=== PATIENT | female | born 1950 | race African-American/Black ===

== ENCOUNTER 2017-12-31 05:22 | Day surgery (SDC) | payer MEDICARE, MEDICAID ==
[~2017-12-31] VITALS: Ht 171.4 cm; Wt 85.7 kg
[~2017-12-31 05:22] MED LIST: HYDR12.54 PO; IBUP-2029 PO; LOSA25TA12 PO
[2017-12-31] MEDS ORDERED: LACTATED RINGERS 1,000 ML IV SCH (06:30)
[2017-12-31] MEDS ORDERED: LIDOCAINE HCL 1% 10 MG/ML 10ML VIAL ONE (06:59)
[2017-12-31] MEDS ORDERED: BUPIVACAINE HCL/PF 0.5% (5MG/ML) 10ML ONE (06:59)
[2017-12-31] MEDS ORDERED: BACITRACIN 50,000 UNITS/VIAL ONE (07:00)
[2017-12-31] MEDS ORDERED: NORMAL SALINE 0.9% 10 ML SYR ONE (07:00)
[2017-12-31] MEDS ORDERED: BETAMETHASONE ACET/BETAMET 30 MG/5 ML VIAL IM ONE (07:00)
[2017-12-31] MEDS ORDERED: MIDAZOLAM HCL 2 MG/2 ML VIAL ONE ×2 (07:42→08:01)
[2017-12-31] MEDS ORDERED: PROPOFOL 200MG/20ML VIAL IV ONE (07:43)
[2017-12-31] MEDS ORDERED: CEFAZOLIN SODIUM 1000MG/VIAL ONE (07:55)
[2017-12-31] MEDS ORDERED: HYDROMORPHONE HCL/PF 2MG/ML CPJ IV PRN (08:45)
[2017-12-31] MEDS ORDERED: ONDANSETRON HCL 4MG/2ML INJ IV PRN (08:45)
== END 2017-12-31 10:10 | disposition home or self-care (01) ==
LOC: OR 05:22
PROVIDERS: ATTEND Podiatrist Foot & Ankle Surgery
DX: M20.42 Other hammer toe(s) (acquired), left foot (principal); L57.0 Actinic keratosis; I10 Essential (primary) hypertension; M17.10 Unilateral primary osteoarthritis, unspecified knee; M19.049 Primary osteoarthritis, unspecified hand; Z79.899 Other long term (current) drug therapy; Z79.1 Long term (current) use of non-steroidal anti-inflammatories (NSAID); Z98.890 Other specified postprocedural states
CPT/HCPCS: 11423; 28285; 88304; 88311; A4216; J0690; J0702; J2250; J3490; J7120; J2704